=== PATIENT | female | born 1950 | race Two or more races ===

== ENCOUNTER 2020-01-14 11:29 | Emergency (ER) | payer MEDICARE ==
[~2020-01-14] VITALS: Ht 165.1 cm; Wt 63.5 kg
--- NOTE | 2020-01-14 11:45 | NUR ---
BED 1 PT BIB SLEF C/O VIOMITING SINCE THURSDAY AND ABD PAIN 10/30. VS CHECKED AWAITING MD PAN.
[2020-01-14] MEDS: KETOROLAC TROMETHAMINE INJ 30 MG/ML VIAL IV ONE (12:15)
[2020-01-14] MEDS: ONDANSETRON HCL/PF 4 MG/2 ML VIAL IVP ONE (12:15)
[2020-01-14] MEDS: IV NS 0.9% 1,000 ML BAG IV ONE (12:15)
[2020-01-14] MEDS: ACETAMINOPHEN ES 500 MG TABLET PO ONE (12:15)
[2020-01-14] MEDS ORDERED: KETOROLAC TROMETHAMINE 15 MG/ML VIAL ONE (12:18)
[2020-01-14] MEDS ORDERED: ONDANSETRON HCL/PF 4 MG/2 ML VIAL ONE (12:19)
[2020-01-14] MEDS ORDERED: ACETAMINOPHEN ES 500 MG TABLET ONE (12:19)
--- NOTE | 2020-01-14 12:30 | NUR ---
RAPID INFLUENZA AND COVID SWAB DONE. SENT TO LAB. URINE COLLECTED ALSO SENT TO LAB.
[2020-01-14 12:35] LABS: BASOPHILS % (AUTO) 0.3 % (0.0-2.0); HEMATOCRIT 40 % (33-45); HEMOGLOBIN 13.1 g/dL (11.5-14.8); LYMPHOCYTES # (AUTO) 1.3 /CMM (0.8-4.8); LYMPHOCYTES % (AUTO) 26.9 % (20.0-44.0); MEAN CORPUSCULAR HGB CONC 33 g/dl (31.0-36.0); MEAN CORPUSCULAR VOLUME 85 fL (82-100); MONOCYTES # (AUTO) 0.5 /CMM (0.1-1.30); MONOCYTES % (AUTO) 10.7 % (2.0-12.0); NEUTROPHILS % (AUTO) 62.1 % (43.0-81.0); PLATELET COUNT (AUTO) 132 /CMM (150-450); RED BLOOD CELL COUNT(AUTO) 4.66 MIL/uL (4.0-5.2); WHITE BLOOD COUNT (AUTO) 4.8 K/uL (4.3-11.0)
--- NOTE | 2020-01-14 12:42 | NUR ---
XRAY DONE IN THE ROOM
[2020-01-14 12:47] LABS: APPEARANCE,URINE CLEAR (CLEAR); BILIRUBIN,URINE NEGATIVE (NEGATIVE); BLOOD, URINE NEGATIVE Ery/uL (NEGATIVE); COLOR,URINE YELLOW (YELLOW); KETONES,URINE TRACE (NEGATIVE); LEUKOCYTE ESTERASE ,URINE SMALL (NEGATIVE); NITRITE, URINE NEGATIVE (NEGATIVE); PROTEIN,URINE NEGATIVE (NEGATIVE); UGLUCOSE NEGATIVE (NEGATIVE)
[2020-01-14 12:48] LABS: ALBUMIN 3.4 g/dL (3.4-5.0); BILIRUBIN,DIRECT 0.2 mg/dL (0.0-0.2); BILIRUBIN,TOTAL 0.4 mg/dL (0.2-1.0); CALCIUM, SERUM 8.6 mg/dL (8.5-10.1); CREATININE 1.3 mg/dL (0.6-1.3); TOTAL PROTEIN, SERUM 7.5 g/dL (6.4-8.2)
[2020-01-14 13:16] LABS: BACTERIA,URINE None seen /HPF (None Seen); RBC,URINE NONE SEEN /HPF (0-2); SQUAMOUS EPITHELIAL CELL,UR Few /HPF (None Seen); WBC,URINE 0-2 /HPF (0-3)
--- NOTE | 2020-01-14 13:41 | NUR ---
IV removed. Catheter intact and site benign. Pressure and 4x4 applied to site. No bleeding noted. Patient discharged to home in stable condition. Written and verbal after care instructions given. Patient verbalizes understanding of instruction.
[2020-01-14 13:42] VITALS: BP 128/82
== END 2020-01-14 13:43 | disposition home or self-care (01) ==
LOC: ER 11:35
DX: U07.1 COVID-19 (principal); I10 Essential (primary) hypertension; E11.65 Type 2 diabetes mellitus with hyperglycemia; R11.2 Nausea with vomiting, unspecified
CPT/HCPCS: 36415; 71045; 80048; 80076; 81001; 85025; 87426; 87804; 96361; 96374; 96375; 99284; J1885; J2405; J7030; 81000-TC; C9803

== ENCOUNTER 2020-01-16 09:10 | Inpatient (IN) | payer MEDICARE ==
[2020-01-16] VITALS (9 sets, daily range): BP systolic 77–137; BP diastolic 55–77
[~2020-01-16] VITALS: Ht 157.5 cm; Wt 66.7 kg
[2020-01-16] MEDS ORDERED: ACETAMINOPHEN ES 500 MG TABLET ONE (09:26)
[2020-01-16] MEDS ORDERED: DEXAMETHASONE SOD PHOSPHATE 10 MG/ML VIAL ONE (09:29)
[2020-01-16] MEDS ORDERED: ACETAMINOPHEN ES 500 MG TABLET PO ONE (09:30)
[2020-01-16] MEDS ORDERED: DEXAMETHASONE SOD PHOSPHATE 10 MG/ML VIAL IV ONE (09:30)
[2020-01-16] MEDS ORDERED: IV NS 0.9% 500 ML IV ONE (09:30)
--- NOTE | 2020-01-16 09:30 | NUR ---
DAR, FROM HOME, C/O HEADACHE AND BODY ACHES, AND DIFFICULTY BREATHING. PT +COVID LAST 2 DAYS. NO EPISODE OF DESATURATION. AWAITING FOR MD PAN
--- NOTE | 2020-01-16 09:53 | NUR ---
IV LINE ESTABLISHED. BLOOD DRAWN, COVID SWAB TEST DONE AND SENT TO LAB
[2020-01-16 09:58] LABS: BASOPHILS % (AUTO) 0.3 % (0.0-2.0); HEMATOCRIT 39 % (33-45); HEMOGLOBIN 13.4 g/dL (11.5-14.8); LYMPHOCYTES # (AUTO) 1.2 /CMM (0.8-4.8); LYMPHOCYTES % (AUTO) 16.2 % (20.0-44.0); MEAN CORPUSCULAR HGB CONC 34 g/dl (31.0-36.0); MEAN CORPUSCULAR VOLUME 84 fL (82-100); MONOCYTES # (AUTO) 0.5 /CMM (0.1-1.30); MONOCYTES % (AUTO) 6.4 % (2.0-12.0); NEUTROPHILS # (AUTO) 5.9 /CMM (1.8-8.9); NEUTROPHILS % (AUTO) 77.1 % (43.0-81.0); PLATELET COUNT (AUTO) 193 /CMM (150-450); RED BLOOD CELL COUNT(AUTO) 4.71 MIL/uL (4.0-5.2); WHITE BLOOD COUNT (AUTO) 7.7 K/uL (4.3-11.0)
[2020-01-16 10:26] LABS: ALANINE AMINOTRANSFERASE 30 U/L (12-78); ALBUMIN 3.4 g/dL (3.4-5.0); ALKALINE PHOSPHATASE 71 U/L (46-116); ASPARTATE AMINOTRANSFERASE 35 U/L (15-37); B-TYPE NATRIURETIC PEPTIDE 291 PG/ML (0-125); BILIRUBIN,TOTAL 0.3 mg/dL (0.2-1.0); CALCIUM, SERUM 8.6 mg/dL (8.5-10.1); CARBON DIOXIDE 27 mmol/L (21-32); CHLORIDE 92 mmol/L (98-107); CREATININE 1.2 mg/dL (0.6-1.3); GLUCOSE 239 mg/dL (74-106); POTASSIUM 4.3 mmol/L (3.5-5.1); SODIUM SERUM 128 mmol/L (136-145); TOTAL PROTEIN, SERUM 7.8 g/dL (6.4-8.2); UREA NITROGEN, BLOOD 11 mg/dL (7-18)
[2020-01-16 10:29] LABS: CREATINE KINASE, TOTAL 195 U/L (26-192); FERRITIN 621 ng/mL (8-388)
[2020-01-16 10:39] LABS: C-REACTIVE PROTEIN 3.4 mg/dL (0.0-0.9)
[2020-01-16] MEDS ORDERED: METF-440 PO (10:44)
[2020-01-16] MEDS ORDERED: LISI10TA5 PO (10:44)
--- NOTE | 2020-01-16 11:00 | NUR ---
REPORT GIVEN TO KAREEM ARENAS FOR BEV
--- NOTE | 2020-01-16 11:12 | NUR ---
PT IN BED ASLEEP. EASILY AROUSABLE. NO ACUTE DISTRESS. NO SOB AT THIS TIME. WILL CONTINUE POC
--- NOTE | 2020-01-16 12:00 | NUR ---
ICU/RN/TELE OF PT ADMITTED FROM ER.PT IS AWAKE ,ALERT.ORIENTED. ON ROOM AIR ,SAT O2-97%.V/S STABLE , AFEBRILE.NO PAIN REPORTED AT THIS TIME. RIGHT ARM IV-HL.PT IS AMBULATING IN THE ROOM.USE RESTROOM.SKIN INTACT.PT IS POSITIVE FOR COVID 19.CANADIAN SPEAKING.PLACED ON MONITOR HR-SINUS RHYTHM 75 BPM.WILL CONTINUE TO MONITOR.
[2020-01-16] MEDS ORDERED: ONDANSETRON HCL/PF 4 MG/2 ML VIAL IVP PRN (12:30)
[2020-01-16] MEDS ORDERED: ONDANSETRON 4 MG TAB.RAPDIS SL PRN (12:30)
[2020-01-16] MEDS ORDERED: ALBUTEROL SULFATE 8 GM HFA.AER.AD IH PRN (12:30)
[2020-01-16] MEDS ORDERED: DEXTROSE 50%-WATER 50 ML DISP.SYRIN IV PRN (13:00)
[2020-01-16] MEDS ORDERED: IV NS 0.9% 1,000 ML IV PRN (13:00)
[2020-01-16] MEDS: ENOXAPARIN SODIUM 40 MG/0.4 ML DISP.SYRIN SQ SCH (13:29)
[2020-01-16] MEDS: LISINOPRIL (10MG) 10 MG TABLET PO SCH (13:30)
[2020-01-16] MEDS: INSULIN REGULAR, HUMAN 100 UNIT/ML 3 ML VIAL SQ PRN ×3 (13:40→21:25)
--- NOTE | 2020-01-16 16:49 | NUR ---
CALL BACK FROM [facility],COVID TEST =POSITIVE
[2020-01-16] MEDS: BLOOD SUGAR DIAGNOSTIC 1 EACH STRIP IN SCH ×2 (17:06→22:12)
--- NOTE | 2020-01-16 17:55 | NUR ---
ICU/RN/TELE OF PT EATS HER DINNER .V/S STABLE,AFEBRILE.NO PAIN REPORTED AT THIS TIME.WILL CONTINUE TO MONITOR.
--- NOTE | 2020-01-16 19:27 | NUR ---
MEETING/EVENT PLANNER - TELEMETRY OVERFLOW PATIENT TRANSPORTED TO TELEMETRY FLOOR ACCOMPANIED BY PRIMARY RN AND HORSE WRANGLER, TO ROOM 200 VIA ACLS PROTOCOL. PATIENT IN STABLE CONDITION AT TIME OF TRANSFER, NO ACUTE DISTRESS NOTED. ALL PATIENT BELONGING CHECKED WITH INVENTORY LIST AND TRANSFERRED WITH PATIENT. MONEY COUNTED IN FRONT OF PATIENT, WHOM CONFIRMS ALL MONEY AND ALL BELONGINGS PRESENT AND ACCOUNTED FOR. BEDSIDE REPORT GIVEN TO NURSE MARCUM FOR CONTINUITY OF CARE
--- NOTE | 2020-01-16 19:42 | NUR ---
BOTTLING LINE OPERATOR NOTES PATIENT ARRIVED TO UNIT ACCOMPANIED BY 2 ICU STAFF; RECEIVED REPORT FROM DAGOBERTO LEWIS; PATIENT BREATHING EVEN AND UNLABORED; SATTING 97% ON ROOM AIR; NO SOB NOTED; NO DISTRESS NOTED; PATIENT A/OX4, JORDANIAN SPEAKER; TELE MONITOR READS SINUS RHYTHM; R AC #18 INTACT AND PATENT, TOLERATING IVF WELL; ISOLATION PRECAUTIONS MAINTAINED; SAFETY PRECAUTIONS IMPLEMENTED; WILL CONTINUE PLAN OF CARE AND CONTINUE TO MONITOR PATIENT;
--- NOTE | 2020-01-17 00:47 | NUR ---
MS2/TELE ASSUMED CARE FOR CONTINUITY OF CARE. PATIENT IS IN BED SLEEPING, APPEAR COMFORTABLE, NO SIGNS OF DISTRESS NOTED, CALL LIGHT IN REACH. WILL MONITOR.
--- NOTE | 2020-01-17 03:43 | NUR ---
NETWORK SUPPORT ANALYST NOTES PATIENT COUGHING AND REQUESTING MEDICATION FOR COUGH/COUGH DROP; HEAD OF BUSINESS DEVELOPMENT LESA LEVI MADE AWARE; AWAITING MD ORDERS; WILL CONT TO MONITOR
[2020-01-17 04:41] VITALS: BP 131/80
--- NOTE | 2020-01-17 06:14 | NUR ---
MS2/RN PATIENT IS STILL SLEEPING AT THIS TIME, APPEAR COMFORTABLE, NO SIGNS OF DISTRESS NOTED, CALL LIGHT IN REACH, ALL NEEDS ATTENDED AT THIS TIME, WILL CONTINUE TO MONITOR.
[2020-01-17] MEDS: BLOOD SUGAR DIAGNOSTIC 1 EACH STRIP IN SCH ×4 (06:32→21:29)
[2020-01-17 07:03] LABS: BASOPHILS % (AUTO) 0.1 % (0.0-2.0); HEMATOCRIT 38 % (33-45); HEMOGLOBIN 12.8 g/dL (11.5-14.8); LYMPHOCYTES # (AUTO) 1.3 /CMM (0.8-4.8); LYMPHOCYTES % (AUTO) 16.8 % (20.0-44.0); MEAN CORPUSCULAR HGB CONC 33 g/dl (31.0-36.0); MEAN CORPUSCULAR VOLUME 85 fL (82-100); MONOCYTES # (AUTO) 0.6 /CMM (0.1-1.30); MONOCYTES % (AUTO) 7.8 % (2.0-12.0); NEUTROPHILS # (AUTO) 5.6 /CMM (1.8-8.9); NEUTROPHILS % (AUTO) 75.3 % (43.0-81.0); PLATELET COUNT (AUTO) 217 /CMM (150-450); WHITE BLOOD COUNT (AUTO) 7.5 K/uL (4.3-11.0)
[2020-01-17 07:35] LABS: CALCIUM, SERUM 9.1 mg/dL (8.5-10.1); CREATININE 0.8 mg/dL (0.6-1.3); POTASSIUM 4.4 mmol/L (3.5-5.1)
--- NOTE | 2020-01-17 07:35 | NUR ---
ms rn received on bed, awake,alert,oriented x4,not in any form of distress, respirations even and unlabored,no sob noted on room air 94% saturation.will monitor patient.
[2020-01-17 08:11] LABS: THYROID STIMULATING HORMONE 0.269 uIU/mL (0.358-3.74)
[2020-01-17 08:13] LABS: C-REACTIVE PROTEIN 4.6 mg/dL (0.0-0.9)
[2020-01-17] MEDS: DEXAMETHASONE 4 MG TABLET PO SCH (08:23)
[2020-01-17] MEDS: GUAIFENESIN/CODEINE 10 ML UDC PO PRN ×2 (08:23→23:16)
[2020-01-17] MEDS: LISINOPRIL (10MG) 10 MG TABLET PO SCH (08:24)
--- NOTE | 2020-01-17 08:30 | NUR ---
ms bergeron breakfast served,due meds given,tolerated well.
[2020-01-17] MEDS ORDERED: REMDESIVIR (INVESTIGATIONAL) 200 MG in IV NS 0.9% 210 ML IV ONE (10:30)
--- NOTE | 2020-01-17 11:30 | NUR ---
ms rn was seen by dr. forrest almaguer/ orders made and carried out.
[2020-01-17] MEDS: ACETAMINOPHEN 325 MG TABLET PO PRN (11:55)
--- NOTE | 2020-01-17 12:00 | NUR ---
ms bergeron [id number] coverage, will monitor patient.
[2020-01-17] MEDS: ENOXAPARIN SODIUM 40 MG/0.4 ML DISP.SYRIN SQ SCH (12:01)
[2020-01-17] MEDS: INSULIN REGULAR, HUMAN 100 UNIT/ML 3 ML VIAL SQ PRN ×3 (12:35→22:07)
--- NOTE | 2020-01-17 19:45 | NUR ---
RN OPENING NOTES PATIENT RECEIVED RESTING IN BED A/O X 4. STABLE ON RA WITH BREATHING EVEN AND UNLABORED, NO SOB NOTED. NO SIGNS OF ACUTE DISTRESS. NO COMPLAINTS OF PAIN OR DISCOMFORT. TELE MONITOR READING SR. IV LOCATED ON [facility] #18 SL. SAFETY PRECAUTIONS IN PLACE WITH BED IN LOWEST POSITION, CALL LIGHT WITHIN REACH, BREAKS ON, SIDE RAILS UP. WILL CONTINUE TO MONITOR THROUGHOUT THE NIGHT.
[2020-01-17 20:00] VITALS: BP 110/62
[2020-01-17] MEDS ORDERED: VANCOMYCIN 1 GM in IV D5W 250 ML IV ONE (20:00)
[2020-01-17] MEDS ORDERED: PNEUMOCOCCAL 23-VAL P-SAC VAC 0.5 ML VIAL IM ONE (20:00)
[2020-01-17] MEDS ORDERED: INFLUENZA VACCINE 2020-21 0.5 ML DISP.SYRIN IM ONE (20:00)
--- NOTE | 2020-01-17 22:10 | NUR ---
RN NOTES PATIENT FSBS [id number]. PATIENT ADMITTED TO EATING FRUIT LEFT AT BEDSIDE. PER SLIDING SCALE 10 UNITS OF INSULIN ADMINISTERED AND MD NOTIFIED. MD MANNY BROWN AWARE- NO NEW ORDERS MADE. WILL CONTINUE TO MONITOR.
--- NOTE | 2020-01-17 22:10 | NUR ---
RN NOTES FLU AND PNA VACCINES ADMINISTERED.
[2020-01-18] VITALS: BP 132/84
[2020-01-18 04:00] VITALS: BP 140/78
[2020-01-18 06:13] LABS: BASOPHILS % (AUTO) 0.1 % (0.0-2.0); HEMATOCRIT 35 % (33-45); HEMOGLOBIN 11.7 g/dL (11.5-14.8); LYMPHOCYTES # (AUTO) 1.4 /CMM (0.8-4.8); MEAN CORPUSCULAR HGB CONC 34 g/dl (31.0-36.0); MEAN CORPUSCULAR VOLUME 84 fL (82-100); MONOCYTES # (AUTO) 0.7 /CMM (0.1-1.30); MONOCYTES % (AUTO) 8.4 % (2.0-12.0); NEUTROPHILS # (AUTO) 6.5 /CMM (1.8-8.9); NEUTROPHILS % (AUTO) 75.5 % (43.0-81.0); PLATELET COUNT (AUTO) 240 /CMM (150-450); RED BLOOD CELL COUNT(AUTO) 4.13 MIL/uL (4.0-5.2); WHITE BLOOD COUNT (AUTO) 8.6 K/uL (4.3-11.0)
[2020-01-18] MEDS: BLOOD SUGAR DIAGNOSTIC 1 EACH STRIP IN SCH ×4 (06:31→21:49)
--- NOTE | 2020-01-18 06:36 | NUR ---
RN CLOSING NOTES PATIENT RESTING IN BED A/O X 4. STABLE ON 3L OF O2 WITH BREATHING EVEN AND UNLABORED, NO SOB NOTED. NO SIGNS OF ACUTE DISTRESS. NO COMPLAINTS OF PAIN OR DISCOMFORT. TELE MONITOR READING SR. IV LOCATED ON [facility] #18 SL. SAFETY PRECAUTIONS IN PLACE WITH BED IN LOWEST POSITION, CALL LIGHT WITHIN REACH, BREAKS ON, SIDE RAILS UP. ALL NEEDS ATTENDED TO. WILL ENDORSE TO ONCOMING SHIFT ABOUT BEV.
[2020-01-18 06:45] LABS: CALCIUM, SERUM 8.7 mg/dL (8.5-10.1); CREATININE 0.8 mg/dL (0.6-1.3); MAGNESIUM 2.3 mg/dL (1.8-2.4); POTASSIUM 4.1 mmol/L (3.5-5.1)
--- NOTE | 2020-01-18 07:30 | NUR ---
HOOK UP NOTES RECEIVED PATIENT IN BED, ASLEEP. AROUSABLE TO VERBAL AND TACTILE STIMULI. HOB ELEVATED. NO SOB. DENIES ANY C/O PAIN NOR DISCOMFORT AT THIS TIME. ON TELE MONITORING SB WITH PVC RATE OF 52. ALERT AND ORIENTED X4. RIGHT AC # 18 SL INTACT AND PATENT. BED IN LOWEST POSITION, LOCKED. ABLE TO VERBALIZE NEEDS.
[2020-01-18] MEDS ORDERED: VANCOMYCIN 0.75 GM in IV D5W 250 ML IV SCH (08:00)
[2020-01-18] MEDS: DEXAMETHASONE 4 MG TABLET PO SCH (08:45)
[2020-01-18] MEDS: LISINOPRIL (10MG) 10 MG TABLET PO SCH (08:46)
[2020-01-18 10:19] LABS: ALBUMIN 2.6 g/dL (3.4-5.0); BILIRUBIN,DIRECT 0.1 mg/dL (0.0-0.2); BILIRUBIN,TOTAL 0.3 mg/dL (0.2-1.0); TOTAL PROTEIN, SERUM 6.6 g/dL (6.4-8.2)
[2020-01-18] MEDS: REMDESIVIR (INVESTIGATIONAL) 100 MG in IV NS 0.9% 230 ML IV SCH (11:42)
[2020-01-18] MEDS: ENOXAPARIN SODIUM 40 MG/0.4 ML DISP.SYRIN SQ SCH (12:25)
[2020-01-18] MEDS: INSULIN REGULAR, HUMAN 100 UNIT/ML 3 ML VIAL SQ PRN ×3 (12:34→21:48)
[2020-01-18] MEDS: GUAIFENESIN/CODEINE 10 ML UDC PO PRN ×2 (13:13→21:47)
--- NOTE | 2020-01-18 19:10 | NUR ---
TRUCK SERVICE MANAGER NOTES PATIENT RESTING COMFORTABLY IN BED. HOB ELEVATED. NO S/S OF RESPIRATORY DISTRESS. DENIES ANY C/O PAIN NOR DISCOMFORT AT THIS TIME. ALERT AND ORIENTED X4. NOTED PATIENT WITH ON AND OFF COUGH DURING THE SHIFT. REMAIN ON REMDESIVIR THERAPY WITHOUT S/S OF COMPLICATIONS. RIGHT AC # 18 SL INTACT AND PATENT. BED IN LOWEST POSITION, LOCKED. ABLE TO VERBALIZE NEEDS. IN NO APPARENT DISTRESS.
--- NOTE | 2020-01-18 19:30 | NUR ---
INSPECTOR FIBROUS WALLBOARD OPENING NOTES RECEIVED PATIENT IN BED ALERT AND ORIENTED X 4. AMBULATORY, VERBALLY RESPONSIVE AND ABLE TO FOLLOW DIRECTIONS. BREATHING REGULAR AND UNLABORED ON OXYGEN AT 3L/MIN VIA NASAL CANNULA, LATEST SPO2 93%. RIGHT AC G18 IV LINE INTACT AND PATENT, FLUSHING WELL WITH NO BLEEDING OR S/S OF INFILTRATION NOTED. ON CARDIAC MONITORING WITH NSR AT 62bpm. DENIES SUICIDAL IDEATION OR PAIN/DISCOMFORT AT THIS TIME. BED LOW AND LOCKED ON SEMI FOWLERS POSITION. CALL LIGHT IN REACH. WILL CONTINUE TO MONITOR.
[2020-01-18 20:00] VITALS: BP 129/77
--- NOTE | 2020-01-18 22:00 | NUR ---
TANK OFFICER NOTES BS 311mg/dl, 8UNITS REGULAR INSULIN GIVEN SQ. SNACKS PROVIDED ON BEDSIDE. WILL CONTINUE TO MONITOR.
[2020-01-19] VITALS: BP 130/67
[2020-01-19 04:00] VITALS: BP 141/66
[2020-01-19] MEDS: INSULIN REGULAR, HUMAN 100 UNIT/ML 3 ML VIAL SQ PRN ×4 (06:33→21:19)
[2020-01-19] MEDS: BLOOD SUGAR DIAGNOSTIC 1 EACH STRIP IN SCH ×4 (06:34→21:21)
[2020-01-19 06:40] LABS: BASOPHILS % (AUTO) 0.1 % (0.0-2.0); HEMATOCRIT 36 % (33-45); LYMPHOCYTES # (AUTO) 1.5 /CMM (0.8-4.8); LYMPHOCYTES % (AUTO) 17.8 % (20.0-44.0); MEAN CORPUSCULAR HGB CONC 34 g/dl (31.0-36.0); MEAN CORPUSCULAR VOLUME 84 fL (82-100); MONOCYTES # (AUTO) 0.8 /CMM (0.1-1.30); NEUTROPHILS % (AUTO) 72.1 % (43.0-81.0); PLATELET COUNT (AUTO) 295 /CMM (150-450); RED BLOOD CELL COUNT(AUTO) 4.27 MIL/uL (4.0-5.2); WHITE BLOOD COUNT (AUTO) 8.3 K/uL (4.3-11.0)
[2020-01-19 06:42] LABS: CALCIUM, SERUM 8.4 mg/dL (8.5-10.1); CREATININE 0.9 mg/dL (0.6-1.3); POTASSIUM 3.8 mmol/L (3.5-5.1)
--- NOTE | 2020-01-19 06:45 | NUR ---
MANUFACTURING ENGINEERING MANAGER CLOSING NOTES PATIENT IN BED ALERT AND ORIENTED X 4. AFEBRILE WITH NO S/S OF DISTRESS OBSERVED. RIGHT AC G18 IV LINE PATENT AND FLUSHING WELL. MAINTAINED ON CARDIAC MONITORING WITH NSR AT 64bpm. NO COMPLAINTS OF PAIN/DISCOMFORT REPORTED AT THIS TIME. BED LOW AND LOCKED ON SEMI FOWLERS POSITION. CALL LIGHT IN REACH. WILL ENDORSE TO MORNING SHIFT FOR BEV.
--- NOTE | 2020-01-19 07:30 | NUR ---
RN Opening Note Received patient AO x 4 English speaking but understand simple Hungarian, able to responds all stimuli. Denies pain or distress, skin is warm to touch, keep clean/dry, intact IV site on right AC 18g with saline lock. Respiratory even and unlabored with oxygen at 2LPM via n/c, no sob or respiratory distress observed. Kept locked bed with elevated HOB for ensure air way and aspiration precaution and lowest bed for safety, call light within reach, will continue to monitor.
[2020-01-19 08:00] VITALS: BP 141/67
[2020-01-19] MEDS: DEXAMETHASONE 4 MG TABLET PO SCH (08:53)
[2020-01-19] MEDS: LISINOPRIL (10MG) 10 MG TABLET PO SCH (08:54)
[2020-01-19] MEDS ORDERED: ENOXAPARIN SODIUM 40 MG/0.4 ML DISP.SYRIN SQ SCH (09:30)
[2020-01-19 10:31] LABS: ALBUMIN 2.5 g/dL (3.4-5.0); BILIRUBIN,DIRECT 0.1 mg/dL (0.0-0.2); BILIRUBIN,TOTAL 0.3 mg/dL (0.2-1.0); TOTAL PROTEIN, SERUM 6.4 g/dL (6.4-8.2)
[2020-01-19] MEDS: REMDESIVIR (INVESTIGATIONAL) 100 MG in IV NS 0.9% 230 ML IV SCH (11:02)
[2020-01-19] MEDS: ENOXAPARIN SODIUM 40 MG/0.4 ML DISP.SYRIN SQ SCH (12:27)
[2020-01-19 15:30] VITALS: BP 131/68
[2020-01-19] MEDS: METFORMIN 500 MG TABLET PO SCH (19:00)
--- NOTE | 2020-01-19 19:00 | NUR ---
DIRECTOR FOOD AND BEVERAGE OPENING NOTES: RECEIVED PATIENT IN BED, AWAKE. A/O X4. NO S/S OF DISTRESS NOTED. NO COMPLAIN OF PAIN. CALL LIGHT WITHIN REACH. BED IN LOWEST AND LOCKED POSITION. AMBULATORY.
[2020-01-19 20:00] VITALS: BP 137/78
[2020-01-19 20:20] VITALS: BP 137/78
[2020-01-20] VITALS (7 sets, daily range): BP systolic 132–143; BP diastolic 64–72
[2020-01-20] MEDS: GUAIFENESIN/CODEINE 10 ML UDC PO PRN ×2 (01:08→11:20)
--- NOTE | 2020-01-20 05:48 | NUR ---
BEAD FLIPPER CLOSING NOTES: PATIENT IS RESTING IN BED, AWAKE, A/O X4. NO S/S OF DISTRESS NOTED. NO COMPLAIN OF PAIN. CALL LIGHT WITHIN REACH. BED IN LOWEST AND LOCKED POSITION. ROBITUSSIN GIVEN X1 FOR COUGHING. AMBULATORY.
[2020-01-20] MEDS: INSULIN REGULAR, HUMAN 100 UNIT/ML 3 ML VIAL SQ PRN ×4 (06:30→23:21)
[2020-01-20] MEDS: BLOOD SUGAR DIAGNOSTIC 1 EACH STRIP IN SCH ×4 (06:30→23:20)
[2020-01-20 06:59] LABS: ALBUMIN 2.7 g/dL (3.4-5.0); BILIRUBIN,DIRECT 0.1 mg/dL (0.0-0.2); BILIRUBIN,TOTAL 0.3 mg/dL (0.2-1.0); CALCIUM, SERUM 8.7 mg/dL (8.5-10.1); CREATININE 0.9 mg/dL (0.6-1.3); POTASSIUM 3.9 mmol/L (3.5-5.1); TOTAL PROTEIN, SERUM 6.7 g/dL (6.4-8.2)
[2020-01-20] MEDS: METFORMIN 500 MG TABLET PO SCH ×2 (08:45→17:11)
[2020-01-20] MEDS: LISINOPRIL (10MG) 10 MG TABLET PO SCH (08:46)
[2020-01-20] MEDS: DEXAMETHASONE 4 MG TABLET PO SCH (08:46)
[2020-01-20] MEDS ORDERED: INFLUENZA VACCINE 2020-21 0.5 ML DISP.SYRIN IM ONE (10:00)
[2020-01-20] MEDS: REMDESIVIR (INVESTIGATIONAL) 100 MG in IV NS 0.9% 230 ML IV SCH (11:23)
[2020-01-20] MEDS: ENOXAPARIN SODIUM 40 MG/0.4 ML DISP.SYRIN SQ SCH (13:18)
--- NOTE | 2020-01-20 18:09 | NUR ---
JAVA ENTERPRISE ARCHITECT NOTES PATIENT IN BED RESTING NO SOB OR ACUTE DISTRESS NOTED. NO ACUTE CHANGES NOTED DURING AM SHIFT. ALL DUE MEDICATIONS ADMINISTERED. ALL NEEDS MET. PATIENT ON 2L OXYGEN VIA NASAL CANNULA. PATIENT AMBULATORY. WILL CONTINUE TO MONITOR.
--- NOTE | 2020-01-20 20:30 | NUR ---
ASPHALT MACHINE OPERATOR PM OPENING NOTE REPORT RECIEVED FROM KATHERYN ARENAS . PATIENT IN BED RESTING NO SOB OR ACUTE DISTRESS NOTED. PATIENT ON 2L OXYGEN VIA NASAL CANNULA. PATIENT AMBULATORY. PT ON TELE READING IS 56 SB PER PAGINATOR. WILL CONTINUE TO MONITOR. VERBALIZED UNDERSTANDING TO CALL FOR ASSISTANCE NEEDED.
[2020-01-21] VITALS: BP 141/70
[2020-01-21 04:00] VITALS: BP 149/71
[2020-01-21] MEDS: BLOOD SUGAR DIAGNOSTIC 1 EACH STRIP IN SCH ×4 (06:47→21:15)
[2020-01-21] MEDS: INSULIN REGULAR, HUMAN 100 UNIT/ML 3 ML VIAL SQ PRN ×4 (06:49→21:13)
--- NOTE | 2020-01-21 06:55 | NUR ---
MORGUE TECHNICIAN PM CLOSING NOTE PATIENT IN BED RESTING NO SOB OR ACUTE DISTRESS NOTED. PATIENT ON 2L OXYGEN VIA NASAL CANNULA. PATIENT AMBULATORY. PT ON TELE READING IS 52 SB PER LOAN COUNSELOR. PT BS THIS AM WAS 151 2 UNITS OF REG INSULIN GIVEN. BED DOWN LOCKED CALL LIGHT WITHIN REACH. WILL ENDORSE TO ONCOMING SHIFT.
[2020-01-21 07:08] LABS: EOSINOPHILS % (AUTO) 0.1 % (0.0-6.0); HEMATOCRIT 38 % (33-45); HEMOGLOBIN 12.7 g/dL (11.5-14.8); LYMPHOCYTES # (AUTO) 2.2 /CMM (0.8-4.8); LYMPHOCYTES % (AUTO) 27.3 % (20.0-44.0); MEAN CORPUSCULAR HGB CONC 34 g/dl (31.0-36.0); MEAN CORPUSCULAR VOLUME 84 fL (82-100); MONOCYTES # (AUTO) 0.8 /CMM (0.1-1.30); MONOCYTES % (AUTO) 10.5 % (2.0-12.0); NEUTROPHILS # (AUTO) 4.9 /CMM (1.8-8.9); NEUTROPHILS % (AUTO) 62.1 % (43.0-81.0); PLATELET COUNT (AUTO) 367 /CMM (150-450); WHITE BLOOD COUNT (AUTO) 7.9 K/uL (4.3-11.0)
--- NOTE | 2020-01-21 07:20 | NUR ---
RN NOTE THE PATIENT IS RECEIVED IN BED. PATIENT IS ALERT AND ORIENTED X4. DENIES PAIN. THE PATIENT IS RECEIVING OXYGEN AT 2L/MIN VIA NASAL CANNULA AND DENIES SOB. RESPIRATION REGULAR AND UNLABORED. PATIENT IN NO APPARENT DISTRESS. THE RAC G 18 PATENT AND SALINE LOCKED. BED LOW AND LOCKED. SIDE RAILS UP X2. CALL LIGHT WITHIN REACH. WILL CONTINUE TO MONITOR.
[2020-01-21 07:25] LABS: ALBUMIN 2.6 g/dL (3.4-5.0); BILIRUBIN,DIRECT 0.1 mg/dL (0.0-0.2); BILIRUBIN,TOTAL 0.3 mg/dL (0.2-1.0); CALCIUM, SERUM 8.7 mg/dL (8.5-10.1); CREATININE 0.9 mg/dL (0.6-1.3); PHOSPHORUS 3.3 mg/dL (2.5-4.9); POTASSIUM 4.1 mmol/L (3.5-5.1); TOTAL PROTEIN, SERUM 6.6 g/dL (6.4-8.2)
[2020-01-21 08:00] VITALS: BP 141/66
[2020-01-21] MEDS: DEXAMETHASONE 4 MG TABLET PO SCH (08:20)
[2020-01-21] MEDS: METFORMIN 500 MG TABLET PO SCH ×2 (08:20→17:27)
[2020-01-21] MEDS: LISINOPRIL (10MG) 10 MG TABLET PO SCH (08:32)
[2020-01-21] MEDS: REMDESIVIR (INVESTIGATIONAL) 100 MG in IV NS 0.9% 230 ML IV SCH (10:54)
[2020-01-21] MEDS: ENOXAPARIN SODIUM 40 MG/0.4 ML DISP.SYRIN SQ SCH (12:09)
--- NOTE | 2020-01-21 18:02 | NUR ---
RN NOTE THE PATIENT IS ALERT AND ORIENTED X4. OXYGEN SATURATION IN ROOM AT 98% WITH OXYGEN DELIVERING AT 2L/MIN VIA NASAL CANNULA. DENIES SOB. RESPIRATION REGULAR AND UNLABORED. DENIES PAIN. RAC G 18 PATENT AND SALINE LOCKED. BED LOW AND LOCKED. SIDE RAILS UP X2. CALL LIGHT WITHIN REACH. WILL ENDORSE TO FELL CUTTER.
--- NOTE | 2020-01-21 19:41 | NUR ---
TELE/RN OPENING NOTE Patient awake in bed, A/O x4, frisian speaking. Breathing even, unlabored, on 2 LPM NC. No acute distress or SOB noted. CRP <3seconds. No JVD. Tongue midline, no tracheal deviation. SKin is warm pink dry, intact, appropriate for ethnicity. Abdomen round, soft, non-tender. BS active. Patient is ambulatory with BRP. Patient voiding clear, yellow urine. IV site RAC 18g saline locked, patent and intact. No signs of redness or infiltration. Bed in low position. wheels locked, side rails up x2, call light within reach. COVID precautions maintained.
[2020-01-21 20:00] VITALS: BP 133/67
[2020-01-21 21:47] VITALS: BP 133/67
[2020-01-22] VITALS (8 sets, daily range): BP systolic 104–137; BP diastolic 49–67
--- NOTE | 2020-01-22 06:01 | NUR ---
TELE/RN CLOSING NOTE Patient asleep in bed, A/O x4, bengali speaking. Breathing even, unlabored, on 2 LPM NC. Tele monitor NSR, [id number] No acute distress or SOB noted. Skin is warm pink dry, intact. Patient is ambulatory with BRP. Patient voiding clear, yellow urine. No void during the night. IV site RAC 18g saline locked, patent and intact. No signs of redness or infiltration. Bed in low position. wheels locked, side rails up x2, call light within reach. COVID precautions maintained.
[2020-01-22] MEDS: INSULIN REGULAR, HUMAN 100 UNIT/ML 3 ML VIAL SQ PRN ×3 (06:28→21:29)
[2020-01-22] MEDS: BLOOD SUGAR DIAGNOSTIC 1 EACH STRIP IN SCH ×4 (06:32→21:34)
[2020-01-22 06:46] LABS: HEMATOCRIT 39 % (33-45); HEMOGLOBIN 12.9 g/dL (11.5-14.8); LYMPHOCYTES # (AUTO) 2.2 /CMM (0.8-4.8); LYMPHOCYTES % (AUTO) 25.1 % (20.0-44.0); MEAN CORPUSCULAR HGB CONC 34 g/dl (31.0-36.0); MEAN CORPUSCULAR VOLUME 84 fL (82-100); MONOCYTES # (AUTO) 0.8 /CMM (0.1-1.30); MONOCYTES % (AUTO) 9.3 % (2.0-12.0); NEUTROPHILS # (AUTO) 5.7 /CMM (1.8-8.9); NEUTROPHILS % (AUTO) 65.6 % (43.0-81.0); PLATELET COUNT (AUTO) 376 /CMM (150-450); RED BLOOD CELL COUNT(AUTO) 4.58 MIL/uL (4.0-5.2); WHITE BLOOD COUNT (AUTO) 8.6 K/uL (4.3-11.0)
--- NOTE | 2020-01-22 07:30 | NUR ---
RN OPENING NOTES RECEIVED PATIENT IN BED AWAKE AOX4. NO CARDIAC OR RESPIRATORY DISTRESS NOTED. NO SOB NOTED. SATURATING WELL ON 2L OF O2 VIA NC. AMBULATORY. SAFETY PRECAUTIONS IN PLACE. BED LOCKED AND IN LOW POSITION. SIDE RAILS UP X2. BED ALARM ON. CALL LIGHT WITHIN REACH.
[2020-01-22 07:36] LABS: CALCIUM, SERUM 9.3 mg/dL (8.5-10.1); CREATININE 0.8 mg/dL (0.6-1.3); MAGNESIUM 1.9 mg/dL (1.8-2.4); PHOSPHORUS 3.5 mg/dL (2.5-4.9); POTASSIUM 4.2 mmol/L (3.5-5.1)
[2020-01-22] MEDS: LISINOPRIL (10MG) 10 MG TABLET PO SCH (08:49)
[2020-01-22] MEDS: METFORMIN 500 MG TABLET PO SCH ×2 (08:49→16:46)
[2020-01-22] MEDS: DEXAMETHASONE 4 MG TABLET PO SCH (08:49)
[2020-01-22] MEDS: ENOXAPARIN SODIUM 40 MG/0.4 ML DISP.SYRIN SQ SCH (12:29)
--- NOTE | 2020-01-22 12:45 | NUR ---
CALLED PHARMACY, PER PHARMACY 5TH DOSE OF REMDESIVIR WAS GIVEN ALREADY YESTERDAY, SINCE PT STARTED ON 01/16. DR. WATERMAN MADE AWARE
--- NOTE | 2020-01-22 14:00 | NUR ---
PT WAS WEANED OFF O2, PT SATURATING AT 95% ON ROOM AIR. DR. WATERMAN MADE AWARE.
--- NOTE | 2020-01-22 16:59 | NUR ---
D/C PACKET DONE AND COMPLETED. PER CASE MANAGEMENT, PT WILL BE PICKED UP AT 8PM Addendum: 01/22/20 at 1700 by OZ ELIAS RN PLS DISREGARD NOTE ABOVE, NOTE WRITTER FOR THE WRONG PT
--- NOTE | 2020-01-22 18:06 | NUR ---
RN CLOSING NOTES RECEIVED PATIENT IN BED AWAKE AOX4. NO CARDIAC OR RESPIRATORY DISTRESS NOTED. NO SOB NOTED. SAMBULATORY. PER DR. WATERMAN SHE MIGHT D/C PT TOMORROW. PT WAS WEANED OFF O2. SATURATING WELL AT 95% ON RA. SAFETY PRECAUTIONS IN PLACE. BED LOCKED AND IN LOW POSITION. SIDE RAILS UP X2. BED ALARM ON. CALL LIGHT WITHIN REACH.
--- NOTE | 2020-01-22 19:46 | NUR ---
ROOFING SUBCONTRACTOR OPEN NOTES PATIENT IS LAYING IN BED. A/O X4. ON RA, NO SOB/ ACUTE RESPIRATORY DISTRESS NOTED. IV IN R AC #18G IS PATENT AND INTACT. PT DENIES ANY PAIN AT THE MOMENT. BED IS IN LOWEST LOCKED POSITION WITH SIDE RAILS UP X3, SEMI FOWLERS. CALL LIGHT IS WITHIN REACH.
[2020-01-22] MEDS: ACETAMINOPHEN 325 MG TABLET PO PRN (21:34)
[2020-01-23] VITALS: BP 109/51
[2020-01-23 04:00] VITALS: BP 112/61
[2020-01-23] MEDS: INSULIN REGULAR, HUMAN 100 UNIT/ML 3 ML VIAL SQ PRN ×3 (06:38→16:58)
[2020-01-23] MEDS: BLOOD SUGAR DIAGNOSTIC 1 EACH STRIP IN SCH ×3 (06:41→16:59)
[2020-01-23 06:42] LABS: BASOPHILS % (AUTO) 0.1 % (0.0-2.0); EOSINOPHILS % (AUTO) 0.1 % (0.0-6.0); HEMATOCRIT 38 % (33-45); HEMOGLOBIN 12.6 g/dL (11.5-14.8); LYMPHOCYTES # (AUTO) 2.1 /CMM (0.8-4.8); LYMPHOCYTES % (AUTO) 23.1 % (20.0-44.0); MEAN CORPUSCULAR HGB CONC 34 g/dl (31.0-36.0); MEAN CORPUSCULAR VOLUME 84 fL (82-100); MONOCYTES # (AUTO) 0.9 /CMM (0.1-1.30); MONOCYTES % (AUTO) 10.2 % (2.0-12.0); NEUTROPHILS # (AUTO) 6.1 /CMM (1.8-8.9); NEUTROPHILS % (AUTO) 66.5 % (43.0-81.0); PLATELET COUNT (AUTO) 412 /CMM (150-450); RED BLOOD CELL COUNT(AUTO) 4.49 MIL/uL (4.0-5.2); WHITE BLOOD COUNT (AUTO) 9.1 K/uL (4.3-11.0)
--- NOTE | 2020-01-23 06:42 | NUR ---
PREDATORY ANIMAL TRAPPER CLOSE NOTES PATIENT IS LAYING IN BED. A/O X4, AZERI SPEAKING. ON RA, NO SOB/ ACUTE RESPIRATORY DISTRESS NOTED. TELE MONITOR READING SINUS REGINO WITH PVC'S, 57. IV IN R AC #18G IS PATENT AND INTACT. PT DENIES ANY PAIN AT THE MOMENT. PT IS ABLE TO AMBULATE. ALL ACCUCHECKS DONE. BED IS IN LOWEST LOCKED POSITION WITH SIDE RAILS UP X2, SEMI FOWLERS. CALL LIGHT IS WITHIN REACH. WILL ENDORSE TO AM NURSE.
--- NOTE | 2020-01-23 07:15 | NUR ---
ASSOCIATE DIRECTOR REGULATORY AFFAIRS NOTES RECEIVED PATIENT IN BED ALERT AND AWAKE ORIENTED X4. NO SOB. DENIES ANY C/O PAIN NOR DISCOMFORT AT THIS TIME. ON TELE MONITORING SR: 60. RIGHT AC # 18 SL INTACT AND PATENT. BED IN LOWEST POSITION ,LOCKED. BED ALARM ON. CALL LIGHT WITHIN REACH. ABLE TO VERBALIZE NEEDS. FREQUENT VISUAL CHECK DONE.
[2020-01-23 07:34] LABS: CALCIUM, SERUM 9.2 mg/dL (8.5-10.1); CREATININE 1.1 mg/dL (0.6-1.3); MAGNESIUM 1.8 mg/dL (1.8-2.4); PHOSPHORUS 3.5 mg/dL (2.5-4.9); POTASSIUM 4.4 mmol/L (3.5-5.1)
[2020-01-23 08:00] VITALS: BP 107/49
[2020-01-23] MEDS ORDERED: INFLUENZA VACCINE 2020-21 0.5 ML DISP.SYRIN IM ONE (09:00)
[2020-01-23] MEDS: LISINOPRIL (10MG) 10 MG TABLET PO SCH (09:00)
[2020-01-23] MEDS: METFORMIN 500 MG TABLET PO SCH ×2 (09:23→16:43)
[2020-01-23] MEDS: DEXAMETHASONE 4 MG TABLET PO SCH (09:23)
--- NOTE | 2020-01-23 09:24 | NUR ---
FINISH CARPENTER NOTES HELD CORBY BP 107/49 HR: 71.
--- NOTE | 2020-01-23 10:47 | NUR ---
REAL ESTATE LEGAL SECRETARY NOTES PATIENT DESAT TO 86% ON ROOM AIR AT REST.
[2020-01-23 12:00] VITALS: BP 117/58
[2020-01-23] MEDS: ENOXAPARIN SODIUM 40 MG/0.4 ML DISP.SYRIN SQ SCH (12:27)
--- NOTE | 2020-01-23 17:30 | NUR ---
WEARING APPAREL SHAKER NOTES ALERT AND AWAKE ORIENTED X4. AMBULATORY WITH STEADY GAIT. PATIENT FOR DISCHARGE. DISCHARGE INSTRUCTIONS/TEACHING/EDUCATION AN PACKET GIVEN TO PATIENT. NO S/S OF RESPIRATORY DISTRESS. NO COUGH. DENIES ANY C/O PAIN NOR DISCOMFORT AT THIS TIME. ALL BELONGINGS ACCOUNTED FOR. IV ACCESS WITH CATHETER TIP INTACT WITH GAUZE DRESSING APPLIED. PATIENT PICKED UP BY SON AND LEFT IN STABLE CONDITION.
== END 2020-01-23 17:30 | disposition home or self-care (01) | DRG 871 ==
LOC: ER 09:14 → ICU 10:13 → TELE2 19:27
PROVIDERS: ADMIT Nurse Practitioner Acute Care; ATTEND Student in an Organized Health Care Education/Training Program
PROC: XW033E5 Introduction of Remdesivir Anti-infective into Peripheral Vein, Percutaneous Approach, New Technology Group 5 (ICD-10-PCS; principal; 2020-01-17)
DX: A41.89 Other specified sepsis (principal); U07.1 COVID-19; J12.89 Other viral pneumonia; J96.01 Acute respiratory failure with hypoxia; E22.2 Syndrome of inappropriate secretion of antidiuretic hormone; E11.22 Type 2 diabetes mellitus with diabetic chronic kidney disease; I12.9 Hypertensive chronic kidney disease with stage 1 through stage 4 chronic kidney disease, or unspecified chronic kidney disease; N18.30 Chronic kidney disease, stage 3 unspecified; E78.00 Pure hypercholesterolemia, unspecified; Z79.899 Other long term (current) drug therapy; Z79.84 Long term (current) use of oral hypoglycemic drugs; E86.1 Hypovolemia
CPT/HCPCS: 36415; 71045-TC; 80048-TC; 80053-TC; 80061-TC; 80076-TC; 81000-TC; 82550-TC; 82728-TC; 82962-TC; 83605-TC; 83615-TC; 83735-TC; 83880; 84100-TC; 84439-TC; 84443-TC; 84484-TC; 85025-TC; 85378-TC; 85385-TC; 85610-TC; 85730-TC; 86140-TC; 87040-TC; 87081-TC; 87086-TC; 90732; C9803; G0378; J1100; J1650; J1815; J3370; J7030; J7040; J7050; J7060; J8540; Q2036; U0003

== ENCOUNTER 2022-10-22 00:02 | Emergency (ER) | payer MEDICARE, OTHER ==
[~2022-10-22] VITALS: Ht 165.1 cm; Wt 68.0 kg
[~2022-10-22 00:02] MED LIST: LISI10TA29 PO; METF-440 PO
[2022-10-22 00:19] VITALS: BP 164/85; TEMP 98.5
[2022-10-22 00:47] VITALS: O2SAT 99
== END 2022-10-22 01:56 | disposition home or self-care (01) ==
LOC: ER 00:07
DX: F41.9 Anxiety disorder, unspecified (principal); F12.10 Cannabis abuse, uncomplicated; I10 Essential (primary) hypertension; E11.9 Type 2 diabetes mellitus without complications; E78.00 Pure hypercholesterolemia, unspecified; Z86.16 Personal history of COVID-19

== ENCOUNTER 2023-10-24 01:23 | Emergency (ER) | payer MEDICARE, OTHER ==
[~2023-10-24] VITALS: Ht 162.6 cm; Wt 68.0 kg
[2023-10-24 02:06] LABS: BASOPHILS % (AUTO) 0.3 % (0.0-2.0); EOSINOPHILS # (AUTO) 0.1 K/uL (0.0-0.7); EOSINOPHILS % (AUTO) 1.9 % (0.0-6.0); HEMATOCRIT 35 % (33-45); HEMOGLOBIN 11.6 g/dL (11.5-14.8); LYMPHOCYTES # (AUTO) 1.8 K/uL (0.8-4.8); LYMPHOCYTES % (AUTO) 28.3 % (20.0-44.0); MEAN CORPUSCULAR HEMOGLOBIN 27 PG (26.0-33.0); MEAN CORPUSCULAR HGB CONC 33 g/dl (31.0-36.0); MEAN CORPUSCULAR VOLUME 83 fL (82-100); MONOCYTES # (AUTO) 0.6 K/uL (0.1-1.30); MONOCYTES % (AUTO) 8.7 % (2.0-12.0); NEUTROPHILS % (AUTO) 60.8 % (43.0-81.0); PLATELET COUNT (AUTO) 185 K/uL (150-450); RED BLOOD CELL COUNT(AUTO) 4.21 MIL/uL (4.0-5.2); RED CELL DISTRIBUTION WIDTH 14.8 % (11.5-15.0); WHITE BLOOD COUNT (AUTO) 6.5 K/uL (4.3-11.0)
[2023-10-24 02:13] LABS: CALCIUM, SERUM 8.8 mg/dL (8.5-10.1); CARBON DIOXIDE 29 mmol/L (21-32); CHLORIDE 100 mmol/L (98-107); CREATININE 1.5 mg/dL (0.6-1.3); GLUCOSE 174 mg/dL (74-106); POTASSIUM 3.9 mmol/L (3.5-5.1); SODIUM SERUM 135 mmol/L (136-145); UREA NITROGEN, BLOOD 27 mg/dL (7-18)
[2023-10-24 02:19] LABS: ALANINE AMINOTRANSFERASE 17 U/L (12-78); ALBUMIN 3.1 g/dL (3.4-5.0); ALKALINE PHOSPHATASE 105 U/L (46-116); ASPARTATE AMINOTRANSFERASE 9 U/L (15-37); BILIRUBIN,DIRECT 0.1 mg/dL (0.0-0.2); BILIRUBIN,TOTAL 0.2 mg/dL (0.2-1.0); TOTAL PROTEIN, SERUM 7.2 g/dL (6.4-8.2)
[2023-10-24] MEDS ORDERED: NITROGLYCERIN 0.4 MG/TAB BOTTLE ONE (02:19)
[2023-10-24] MEDS ORDERED: ASPIRIN 325 MG TABLET ONE (02:20)
[2023-10-24] MEDS: ASPIRIN 325 MG TABLET PO ONE (02:26)
[2023-10-24] MEDS: NITROGLYCERIN 0.4 MG/TAB BOTTLE SL ONE (02:27)
[2023-10-24 02:28] LABS: INR 0.97 (0.91-1.10); PROTHROMBIN TIME 10.3 SECS (9.2-11.1)
[2023-10-24 03:11] VITALS: BP 157/78; TEMP 98.2; O2SAT 98
== END 2023-10-24 03:17 | disposition home or self-care (01) ==
LOC: EDUNIT# 01:23 → ER 01:27
DX: I16.0 Hypertensive urgency (principal); R07.9 Chest pain, unspecified; R94.31 Abnormal electrocardiogram [ECG] [EKG]; E11.9 Type 2 diabetes mellitus without complications; E78.00 Pure hypercholesterolemia, unspecified; Z91.148 Patient's other noncompliance with medication regimen for other reason; Z86.16 Personal history of COVID-19
CPT/HCPCS: 36415; 70450-TC; 71045-TC; 80048-TC; 80076-TC; 84484-TC; 85025-TC; 85730-TC

== ENCOUNTER 2024-10-21 18:23 | Emergency (ER) | payer MEDICARE, OTHER ==
[~2024-10-21] VITALS: Ht 165.1 cm; Wt 68.0 kg
[2024-10-21 18:56] LABS: PLATELET COUNT (AUTO) 241 K/uL (150-450); RED BLOOD CELL COUNT(AUTO) 4.36 MIL/uL (4.0-5.2); RED CELL DISTRIBUTION WIDTH 14.0 % (11.5-15.0); WHITE BLOOD COUNT (AUTO) 8.1 K/uL (4.3-11.0)
[2024-10-21] MEDS: IV NS 0.9% 1,000 ML BAG IV ONE (18:57)
[2024-10-21 19:04] LABS: CALCIUM, SERUM 9.0 mg/dL (8.5-10.1); CREATININE 1.6 mg/dL (0.6-1.3); SODIUM SERUM 136 mmol/L (136-145); UREA NITROGEN, BLOOD 31 mg/dL (7-18)
[2024-10-21 19:10] LABS: ASPARTATE AMINOTRANSFERASE 12 U/L (15-37); TOTAL PROTEIN, SERUM 7.5 g/dL (6.4-8.2)
[2024-10-21 19:17] LABS: APPEARANCE,URINE CLEAR (CLEAR); BLOOD, URINE Negative Ery/uL (NEGATIVE); LEUKOCYTE ESTERASE ,URINE Trace (NEGATIVE); UGLUCOSE 250 MG/DL mg/dL (NEGATIVE)
[2024-10-21 19:18] LABS: NITRITE, URINE NEGATIVE (NEGATIVE)
[2024-10-21 19:19] LABS: ADD URINE CULTURE NO; SQUAMOUS EPITHELIAL CELL,UR Few /HPF (None Seen)
[2024-10-21 22:30] VITALS: BP 145/70; TEMP 98; O2SAT 96
== END 2024-10-21 22:31 | disposition home or self-care (01) ==
LOC: ER 18:24
DX: R10.84 Generalized abdominal pain (principal); R19.7 Diarrhea, unspecified; I10 Essential (primary) hypertension; E11.9 Type 2 diabetes mellitus without complications; E78.00 Pure hypercholesterolemia, unspecified; Z79.84 Long term (current) use of oral hypoglycemic drugs; Z79.899 Other long term (current) drug therapy; Z86.16 Personal history of COVID-19
CPT/HCPCS: 99284; 74176; 96360; 85025; 80048; 87086; 83690; 80076; 81001; 36415; J7030

== ENCOUNTER 2024-11-04 19:35 | Emergency (ER) | payer MEDICARE, OTHER ==
[~2024-11-04] VITALS: Ht 154.9 cm; Wt 74.8 kg
[2024-11-04 20:34] LABS: PLATELET COUNT (AUTO) 215 K/uL (150-450); RED BLOOD CELL COUNT(AUTO) 4.32 MIL/uL (4.0-5.2); RED CELL DISTRIBUTION WIDTH 13.9 % (11.5-15.0); WHITE BLOOD COUNT (AUTO) 7.1 K/uL (4.3-11.0)
[2024-11-04 21:00] LABS: ASPARTATE AMINOTRANSFERASE 17.0 U/L (15-37); CALCIUM, SERUM 9.0 mg/dL (8.5-10.1); CREATININE 1.4 mg/dL (0.6-1.3); TOTAL PROTEIN, SERUM 7.5 g/dL (6.4-8.2); UREA NITROGEN, BLOOD 30.0 mg/dL (7-18)
[2024-11-04 21:13] LABS: SODIUM SERUM 135.0 mmol/L (136-145)
[2024-11-04 21:21] LABS: APPEARANCE,URINE CLEAR (CLEAR); BLOOD, URINE NEGATIVE Ery/uL (NEGATIVE); LEUKOCYTE ESTERASE ,URINE NEGATIVE (NEGATIVE); NITRITE, URINE NEGATIVE (NEGATIVE); UGLUCOSE NEGATIVE (NEGATIVE)
[2024-11-04] MEDS ORDERED: CIPR500T5 PO (21:33)
[2024-11-04] MEDS ORDERED: METR500T PO (21:33)
[2024-11-04] MEDS: IV NS 0.9% 1,000 ML BAG IV ONE (21:40)
[2024-11-04 21:52] VITALS: BP 142/80; TEMP 98.5; O2SAT 95
== END 2024-11-04 22:38 | disposition home or self-care (01) ==
LOC: ER 19:45
DX: R19.7 Diarrhea, unspecified (principal); R10.9 Unspecified abdominal pain; E86.0 Dehydration; I10 Essential (primary) hypertension; E78.00 Pure hypercholesterolemia, unspecified; E11.9 Type 2 diabetes mellitus without complications; Z79.84 Long term (current) use of oral hypoglycemic drugs; Z79.899 Other long term (current) drug therapy; Z86.16 Personal history of COVID-19
CPT/HCPCS: 99284; 74176; 96360; 85025; 80048; 83690; 80076; 81003; 36415; J7030